=== PATIENT | female | born 1950 | race Caucasian/White ===

== ENCOUNTER → 2017-07-12 | Outpatient (CLI) | payer OTHER ==
--- NOTE | 2017-07-12 12:24 | NM ---
EXAMINATION TYPE: NM stress cardiolite complete DATE OF EXAM: 07/12/2017 COMPARISON: NONE HISTORY: 66-year-old female with chest pain and shortness of breath TECHNIQUE: After the intravenous administration of 10.0 mCi Tc 99m Sestamibi - Rest images obtained 45 minutes post injection. The patient exercised using a LAMONT protocol and 1 minute prior to peak exercise was injected with 24.5 mCi Tc 99m Sestamibi - Stress images obtained 25 minutes post injecti on. FINDINGS: Targeted heart rate was achieved during performance of the study; patient reached 93% maximal heart r ate with exercise time of 3 minutes 33 seconds. The technologist reports that the patient was experie ncing PVCs and chest pain. Review of stress and rest SPECT images demonstrates no distinct perfusion abnormality. Attenuation a rtifacts are prominent on the rest images. Gated analysis shows normal wall motion with an estimated left ventricular ejection fraction of 65 %. TID is calculated at 0.77, within normal limits. IMPRESSION: No scintigraphic evidence for reversible ischemia
--- NOTE | 2017-07-13 06:57 | ECHOF ---
Referral Reason:R07.9 chest pain R06.00 dyspnea MEASUREMENTS -------- HEIGHT: 167.6 cm WEIGHT: 90.7 kg BP: IVSd: 1.4 cm (0.6 - 1.1) LVIDd: 3.6 cm (3.9 - 5.3) LVPWd: 1.4 cm (0.6 - 1.1) IVSs: 1.8 cm LVIDs: 2.1 cm LVPWs: 1.8 cm Ao Diam: 3.2 cm (2.0 - 3.7) AV Cusp: 1.8 cm (1.5 - 2.6) LA Diam: 3.4 cm (2.7 - 3.8) MV EXCURSION: 15.271 mm (> 18.000) MV EF SLOPE: 29 mm/s (70 - 150) EPSS: 0.3 cm MV E Honorio: 0.65 m/s MV DecT: 183 ms MV A Honorio: 0.54 m/s MV E/A Ratio: 1.20 RAP: 5.00 mmHg RVSP: 14.41 mmHg FINDINGS -------- Sinus rhythm. This was a technically good study. There is moderate concentric left ventricular hypertrophy. Overall left ventricular systolic function is normal with, an EF between 55 - 60 %. The right ventricle is normal in size and function. The left atrium is normal in size. The right atrium is normal in size. The aortic valve is trileaflet, and appears structurally normal. No aortic stenosis or regurgitation. The mitral valve leaflets are mildly thickened. There is trace mitral regurgitation. Trace tricuspid regurgitation present. The right ventricular systolic pressure, as measured by Doppler, is 14.41mmHg. Pulmonic valve appears structurally normal. The aortic root size is normal. The pericardium is normal. CONCLUSIONS -------- 1. Sinus rhythm. 2. There is trace mitral regurgitation. 3. Trace tricuspid regurgitation present. 4. The right ventricular systolic pressure, as measured by Doppler, is 14.41mmHg. 5. Pulmonic valve appears structurally normal. 6. The aortic root size is normal. 7. The pericardium is normal. 8. This was a technically good study. 9. There is moderate concentric left ventricular hypertrophy. 10. Overall left ventricular systolic function is normal with, an EF between 55 - 60 %. 11. The right ventricle is normal in size and function. 12. The left atrium is normal in size. 13. The right atrium is normal in size. 14. The aortic valve is trileaflet, and appears structurally normal. No aortic stenosis or regurgitation. 15. The mitral valve leaflets are mildly thickened. LAST CHALKER: Nathaly Gonzalez RDCS
--- NOTE | 2017-07-13 07:23 | EST ---
EXERCISE STRESS DATE OF SERVICE: 07/12/2017 AGE: 66 SEX: Female. HT: 66" WT: 200 pounds PROTOCOL: Cardiolite STAGE: II DURATION OF EXERCISE: 3:35 HEART RATE REST: 77 BLOOD PRESSURE REST: 136/68 MAXIMUM HEART RATE ACHIEVED: 146 MAXIMUM BLOOD PRESSURE: 203/67 85% MPHR: 133 100% MPHR: 156 METS: 5.2 INDICATIONS: Chest pain. CLINICAL INFORMATION: Baseline EKG revealed normal sinus rhythm without significant ST-T changes. Patient walked on a standard Indra protocol for a total duration of 3 minutes and 35 seconds, achieved a maximal heart rate of 146 beats per minute which is more than 85% of predicted maximal. There was a lot of artifact on the EKG tracings; however, there is no evidence of any clear-cut stress-induced ischemia on this study. The patient did not have any angina. Her exercise capacity was quite limited. By EKG criteria, this is a negative stress test with limited exercise capacity and only 3-1/2 minutes of exercise. MMODL / IJN: [id number] /
== END | disposition home or self-care (01) ==
LOC: RADNMMAIN 08:51
PROVIDERS: ATTEND Family Medicine
DX: I51.7 Cardiomegaly (principal); R07.9 Chest pain, unspecified; R53.83 Other fatigue; I10 Essential (primary) hypertension; Z72.0 Tobacco use
CPT/HCPCS: 93017; 93306; 78452; A9500

== ENCOUNTER → 2017-07-27 | Outpatient (CLI) | payer OTHER ==
--- NOTE | 2017-07-27 12:32 | CT ---
EXAMINATION TYPE: CT chest w con DATE OF EXAM: 07/27/2017 COMPARISON: NONE HISTORY: SOB, bilateral lower limb edema CT DLP: 437.2 mGycm. Automated Exposure Control for Dose Reduction was Utilized. TECHNIQUE: CT scan of the thorax is performed following with IV Contrast, patient injected with 100 mL of Omnipaque 300. FINDINGS: LUNGS: The lungs are grossly clear, there is no concerning parenchymal mass or nodule identified. T here is no pleural effusion or pneumothorax seen. The tracheobronchial tree is patent. Nodular area of pleural parenchymal scarring is seen at the left lung base. Minimal subsegmental bibasilar depende nt atelectasis is noted. Calcified right lower lobe granuloma is seen medially inferior to the gastro esophageal recess. MEDIASTINUM: There are no greater than 1 cm hilar or mediastinal lymph nodes. No pericardial effusi on is seen. OTHER: Minimal degenerative changes of the thoracic spine are noted. Phrygian cap is incidentally not ed of the gallbladder. IMPRESSION: 1. No evidence of pulmonary edema to suggest decompensated congestive heart failure in this patient w ith bilateral lower extremity edema. No pulmonary arterial enlargement or ascending thoracic aortic a neurysm. 2. Mild splenomegaly, incidentally noted.
== END | disposition home or self-care (01) ==
LOC: RADCTMAIN 11:49
PROVIDERS: ATTEND Family Medicine
DX: R07.9 Chest pain, unspecified (principal); R06.00 Dyspnea, unspecified; Z72.0 Tobacco use
CPT/HCPCS: 71260; Q9967

== ENCOUNTER 2019-05-18 09:57 | Day surgery (SDC) | payer MEDICARE, OTHER ==
[2019-05-16 15:56] VITALS: BMI 32.3
[~2019-05-18 09:57] MED LIST: LACTATED RINGERS 1,000 ML IV SCH; LIDOCAINE 1% 20 ML VIAL (10MG/ML) FOR IV START INTRADERMA PRN
[2019-05-18 10:14] VITALS: RESP 16; TEMP 98.3
[2019-05-18] MEDS ORDERED: LIDOCAINE 1% 20 ML VIAL (10MG/ML) FOR IV START INTRADERMA ONE (10:22)
[2019-05-18] MEDS ORDERED: LACTATED RINGERS 1,000 ML IV ONE (10:22)
[2019-05-18] MEDS ORDERED: PROPOFOL 10 MG/ML 20 ML VIAL IV ONE (10:54)
[2019-05-18] MEDS ORDERED: LIDOCAINE 1% INJ 10MG/ML (20 ML MDV) ONE (10:54)
--- NOTE | 2019-05-18 11:15 | P.PCN ---
Date of Procedure: 05/18/19 Procedure(s) Performed: BRIEF HISTORY: Patient is a 68-year-old pleasant white female, scheduled for an elective colonoscopy as a part of screening for colorectal neoplasia. PROCEDURE PERFORMED: Colonoscopy. PREOPERATIVE DIAGNOSIS: Screening for colon cancer. IV sedation per Anesthesia. PROCEDURE: After informed consent was obtained, the patient, was brought into the endoscopy unit. IV sedation was administered by Anesthesia under continuous monitoring. Digital rectal examination was normal. Initially the Olympus CF-160 flexible video colonoscope was then inserted in the rectum, gradually advanced into the cecum without any difficulty. Careful examination was performed as the scope was gradually being withdrawn. Ileocecal valve and the appendiceal orifice were visualized and appeared normal. Prep was excellent. Mucosa of the cecum, ascending colon, transverse colon, descending colon, sigmoid colon, and rectum appeared normal. Retroflexion was performed in the rectum and no lesions were seen. The patient tolerated the procedure well. IMPRESSION: Normal-appearing colon from rectum to cecum with no evidence of colorectal neoplasia. RECOMMENDATIONS: Findings of this examination were discussed with the patient as well as a family. She was advised to have a repeat screening colonoscopy in 10 years.
[2019-05-18 11:35] VITALS: BP 168/77; PULSE 73
== END 2019-05-18 11:48 | disposition home or self-care (01) ==
LOC: ORWHC2ENDO 09:57
PROVIDERS: ATTEND Internal Medicine Gastroenterology
DX: Z12.11 Encounter for screening for malignant neoplasm of colon (principal); I10 Essential (primary) hypertension; F17.210 Nicotine dependence, cigarettes, uncomplicated; Z79.82 Long term (current) use of aspirin; Z79.899 Other long term (current) drug therapy; Z79.890 Hormone replacement therapy; Z96.649 Presence of unspecified artificial hip joint
CPT/HCPCS: J2001; J2704; G0121

== ENCOUNTER → 2020-05-27 | Outpatient (CLI) | payer MEDICARE, OTHER ==
--- NOTE | 2020-05-28 10:28 | ECHOF ---
Referral Reason:I10 hypertension, R07.9 chest pain MEASUREMENTS -------- HEIGHT: 165.1 cm WEIGHT: 88.0 kg BP: RVIDd: 3.1 cm (< 3.3) IVSd: 1.2 cm (0.6 - 1.1) LVIDd: 3.8 cm (3.9 - 5.3) LVPWd: 1.3 cm (0.6 - 1.1) IVSs: 1.3 cm LVIDs: 3.2 cm LVPWs: 1.6 cm LA Diam: 4.1 cm (2.7 - 3.8) LAESV Index (A-L): 29.42 ml/m Ao Diam: 2.8 cm (2.0 - 3.7) AV Cusp: 1.7 cm (1.5 - 2.6) MV EXCURSION: 13.536 mm (> 18.000) MV EF SLOPE: 74 mm/s (70 - 150) EPSS: 0.9 cm MV E Honorio: 0.65 m/s MV DecT: 188 ms MV A Honorio: 0.61 m/s MV E/A Ratio: 1.05 RAP: 5.00 mmHg RVSP: 30.88 mmHg FINDINGS -------- Sinus rhythm. This was a technically good study. The left ventricular size is normal. There is mild concentric left ventricular hypertrophy. Overa ll left ventricular systolic function is normal with, an EF between 55 - 60 %. The right ventricle is normal in size. The left atrium is mildly dilated. LA is midly dilated 29-33ml/m2. The right atrial size is normal. Interatrial and interventricular septum intact. The aortic valve is trileaflet, and appears structurally normal. No aortic stenosis or regurgitation. Mild mitral regurgitation is present. Mild tricuspid regurgitation present. Right ventricular systolic pressure is normal at < 35 mmHg. There is no pulmonic regurgitation present. The aortic root size is normal. There is no pericardial effusion. CONCLUSIONS -------- 1. Sinus rhythm. 2. This was a technically good study. 3. The left ventricular size is normal. 4. There is mild concentric left ventricular hypertrophy. 5. Overall left ventricular systolic function is normal with, an EF between 55 - 60 %. 6. The right ventricle is normal in size. 7. The left atrium is mildly dilated. 8. LA is midly dilated 29-33ml/m2. 9. The right atrial size is normal. 10. Mild mitral regurgitation is present. 11. Mild tricuspid regurgitation present. 12. Right ventricular systolic pressure is normal at < 35 mmHg. PATIENT SCHEDULING MANAGER: Nathaly Gonzalez RDCS
== END | disposition home or self-care (01) ==
LOC: RADECHMAIN 12:11
PROVIDERS: ATTEND Family Medicine
DX: I08.1 Rheumatic disorders of both mitral and tricuspid valves (principal)
CPT/HCPCS: 93306

== ENCOUNTER → 2020-07-20 | Outpatient (CLI) | payer MEDICARE ==
--- NOTE | 2020-07-20 10:05 | CTL ---
EXAMINATION TYPE: CT Low Dose Lung DATE OF EXAM ORDERED: 07/20/2020 HISTORY: Personal history tobacco use. Lung cancer screening CT DLP: 122.[address] CTDI: 3.9 mGy Automated exposure control for dose reduction was used. SCREENING VISIT: 1 COMPARISON: Chest CT 07/27/2017 TECHNIQUE: Low dose computed tomography scan was performed through the chest at 1 mm thick sections a nd reconstructed images in the coronal plane at [address] DIAGNOSTIC QUALITY: Satisfactory FINDINGS: LUNG NODULES: No suspicious nodules LUNGS: COPD: Severity: None Fibrosis: Severity: None Lymph nodes: None Other findings: Right lung base medially there is a calcified nodule abutting the mediastinum, axial image #62 measures 9 mm. Subpleural soft tissue focus on axial image 62 measures 3 mm, likely postinf lammatory. Scarring is present at the posterior left lung base, stable RIGHT PLEURAL SPACE: Effusion: None Calcification: None Thickening: None Pneumothorax: None LEFT PLEURAL SPACE: Effusion: None Calcification: None Thickening: None Pneumothorax: None HEART: Heart Size: Normal Coronary calcification: Minimal Pericardial effusion: None OTHER FINDINGS: Upper abdomen: The spleen is enlarged at 14 cm Bony thorax: Thoracic spondylosis, degenerative disc changes are present Supraclavicular region: Normal Other: IMPRESSION: Benign FOLLOW UP CT CHEST RECOMMENDATION: [address] LUNG RAD: 2
== END | disposition home or self-care (01) ==
LOC: RADCTMAIN 07:25
PROVIDERS: ATTEND Family Medicine
DX: Z12.2 Encounter for screening for malignant neoplasm of respiratory organs (principal); F17.210 Nicotine dependence, cigarettes, uncomplicated

== ENCOUNTER → 2020-09-15 | Outpatient (CLI) | payer MEDICARE ==
--- NOTE | 2020-09-17 10:10 | MR ---
EXAMINATION TYPE: MR liver wo/w con DATE OF EXAM: 09/15/2020 COMPARISON: None HISTORY: Liver Cirrhosis CONTRAST: Standard multiplanar, multisequence MRI departmental protocol utilizing 9 mL intravenous Gadavist jayme olinium contrast. FINDINGS: Liver demonstrates a coarsened signal pattern without evidence of discrete mass. Hepatic veins and po rtal veins appear to enhance normally. The heart is enlarged. Spleen measures 14 cm compatible with mild splenomegaly. Correlate for hepatoc ellular disease and cirrhosis. Hypertrophic change of the facets and degenerative change of the spine noted. There are multiple gallstones. Pancreas demonstrates a normal appearance. No hydronephrosis. Adrenal glands of normal morphology. Aorta of normal caliber. Bowel gas pattern nonspecific. No free fluid. N o pathologic adenopathy. Tiny areas of abnormal signal involving both kidneys too small to characteri ze but likely related to tiny cyst cysts measuring less than 5 mm IMPRESSION: 1. Findings are suggestive of diffuse hepatocellular disease such as hepatic cirrhosis with mild sple nomegaly but no evidence of mass. 2. Cholelithiasis.
== END | disposition home or self-care (01) ==
LOC: RADMRIMAIN 12:05
PROVIDERS: ATTEND Internal Medicine Hematology & Oncology
DX: K80.20 Calculus of gallbladder without cholecystitis without obstruction (principal); K74.60 Unspecified cirrhosis of liver
CPT/HCPCS: 74183; A9585

== ENCOUNTER → 2020-11-27 | Day surgery (SDC) | payer MEDICARE ==
[2020-11-25 11:59] VITALS: BMI 33.3
[~2020-11-27] MED LIST changes: +LACTATED RINGERS 1,000 ML IV ONE; -LACTATED RINGERS 1,000 ML IV SCH; -LIDOCAINE 1% 20 ML VIAL (10MG/ML) FOR IV START INTRADERMA PRN; +LIDOCAINE 1% INJ 10MG/ML (20 ML MDV) ONE; +PROPOFOL 10 MG/ML 20 ML VIAL IV ONE
[2020-11-27 10:48] VITALS: TEMP 98.2
--- NOTE | 2020-11-27 11:15 | P.PCN ---
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 PROCEDURE PERFORMED: Esophagogastroduodenoscopy. PREOPERATIVE DIAGNOSIS: Cirrhosis of the liver/screening for esophageal varices. IV sedation per anesthesia. PROCEDURE: After informed consent was obtained, the patient was brought into the endoscopy unit. IV sedation was administered by Anesthesia under continuous monitoring. Initially the Olympus GIF-140 video endoscope was inserted into the mouth. Esophagus intubated without any difficulty. It was gradually advanced into the stomach and duodenum and carefully examined. The bulb and the second part of the duodenum appeared normal. The scope at this time was withdrawn to the stomach, adequately insufflated with air, and upon careful examination, mucosa of the antrum, appeared normal. Mucosa of the body, cardia and the fundus had changes consistent with mild portal hypertensive gastropathy. The scope was then withdrawn into the esophagus. The GE junction was located at 39 cm from the incisors. Small esophageal varices noted with no evidence of any red signs.. The rest of the esophagus appeared normal. There were no erosions or ulcerations seen and the patient tolerated the procedure well. IMPRESSION: 1. Small esophageal varices with no red signs seen. 2. Mild portal hypertensive gastropathy. 3. No evidence of gastric varices. RECOMMENDATIONS: The findings of this examination were discussed with the patient as well as a family. She'll be scheduled for repeat upper endoscopy in 2 years to evaluate for change in esophageal varices.
[2020-11-27 11:18] VITALS: RESP 17
[2020-11-27 11:37] VITALS: BP 154/73; PULSE 79
== END ==
LOC: ORWHC2ENDO 10:18
PROVIDERS: ATTEND Internal Medicine Gastroenterology
DX: K74.60 Unspecified cirrhosis of liver (principal); I85.10 Secondary esophageal varices without bleeding; K76.6 Portal hypertension; K31.89 Other diseases of stomach and duodenum; I10 Essential (primary) hypertension; E07.9 Disorder of thyroid, unspecified; F17.210 Nicotine dependence, cigarettes, uncomplicated; Z79.890 Hormone replacement therapy; Z79.899 Other long term (current) drug therapy; Z97.2 Presence of dental prosthetic device (complete) (partial); Z96.641 Presence of right artificial hip joint; Z90.49 Acquired absence of other specified parts of digestive tract; Z90.89 Acquired absence of other organs; Z98.890 Other specified postprocedural states
CPT/HCPCS: 43235; J2001; J2704

== ENCOUNTER → 2021-09-06 | Outpatient (CLI) | payer MEDICARE ==
--- NOTE | 2021-09-06 09:54 | US ---
EXAMINATION TYPE: US abdomen limited DATE OF EXAM: 09/06/2021 COMPARISON: NONE CLINICAL HISTORY: B18.2 Chronic Hep C, K74.60 Unspecified cirrhosis. No Pain, Cholelithiasis EXAM MEASUREMENTS: Liver Length: 14.7 cm Gallbladder Wall: 0.3 cm CBD: 0.5 cm Right Kidney: 10.1 x 5.1 x 4.0 cm Pancreas: Obscured by bowel gas Liver: Increased attenuation, decreased visualization of vessels suggestive of fatty infiltrate Gallbladder: Multiple Gallbladder stones seen Evidence for sonographic Minor's sign: No CBD: wnl Right Kidney: No hydronephrosis or masses seen Multiple Gallbladder stones, gallbladder has multiple folds 1) 0.9 x 0.9 x1.2cm 2) 1.7 x 1.7 x 1.3cm 3) 1.8 x1.6 x1.4cm 4) 1.4 x1.5 x 1.2cm IMPRESSION: 1. Multiple gallstones. 2. Nonspecific pattern of liver can be seen with hepatic steatosis or hepatocellular disease includin g hepatitis correlate clinically.
== END | disposition home or self-care (01) ==
LOC: RADUSWWP 09:05
PROVIDERS: ATTEND Internal Medicine
DX: K80.20 Calculus of gallbladder without cholecystitis without obstruction (principal); B18.2 Chronic viral hepatitis C
CPT/HCPCS: 76705

== ENCOUNTER → 2022-03-10 | Outpatient (CLI) | payer MEDICARE ==
[2022-03-10 13:28] LABS: Basophils % (A) 1 %; Eosinophils # (A) 0.1 k/uL (0-0.7); Eosinophils % (A) 3 %; HCT 37.4 % (34.0-46.0); HGB 11.8 gm/dL (11.4-16.0); Lymphocytes # (A) 1.4 k/uL (1.0-4.8); Lymphocytes % (A) 46 %; MCH 32.3 pg (25.0-35.0); MCHC 31.6 g/dL (31.0-37.0); MCV 102.2 fL (80.0-100.0); Macrocytosis Slight; Mean Platelet Volume 9.7; Monocytes # (A) 0.3 k/uL (0-1.0); Monocytes % (A) 11 %; Neutrophils # (A) 1.2 k/uL (1.3-7.7); Neutrophils % (A) 38 %; RBC 3.65 m/uL (3.80-5.40); RDW 14.7 % (11.5-15.5); WBC 3.2 k/uL (3.8-10.6)
[2022-03-10 15:09] LABS: Platelet Count 54 k/uL (150-450)
[2022-03-10 18:02] LABS: % Iron Saturation 43.63 (12.00-45.00)
== END | disposition home or self-care (01) ==
LOC: LABWHC1 11:47
PROVIDERS: ATTEND Physician Assistant
DX: D61.9 Aplastic anemia, unspecified (principal)
CPT/HCPCS: 36415; 82728; 83540; 83550; 85025

== ENCOUNTER 2023-02-03 11:19 | Day surgery (SDC) | payer MEDICARE, OTHER ==
[~2023-02-03 11:19] MED LIST changes: -LACTATED RINGERS 1,000 ML IV ONE; +LACTATED RINGERS 1,000 ML IV SCH; -LIDOCAINE 1% INJ 10MG/ML (20 ML MDV) ONE; -PROPOFOL 10 MG/ML 20 ML VIAL IV ONE
[2023-02-03] MEDS ORDERED: LACTATED RINGERS 1,000 ML IV ONE (11:43)
[2023-02-03 11:54] VITALS: RESP 16; TEMP 98.2
[2023-02-03] MEDS ORDERED: PROPOFOL 10 MG/ML 20 ML VIAL IV ONE (12:33)
--- NOTE | 2023-02-03 12:40 | P.PCN ---
Date of Procedure: 02/03/23 Procedure(s) Performed: BRIEF HISTORY: Patient is a 72-year-old, pleasant, 16 female with history of cirrhosis of the liver and prior history of chronic hepatitis C infection is scheduled for an upper endoscopy as a part of screening for esophageal varices.. PROCEDURE PERFORMED: Esophagogastroduodenoscopy. PREOPERATIVE DIAGNOSIS: Cirrhosis of the liver/screening for esophageal varices. IV sedation per anesthesia. PROCEDURE: After informed consent was obtained, the patient was brought into the endoscopy unit. IV sedation was administered by Anesthesia under continuous monitoring. Initially the Olympus GIF-140 video endoscope was inserted into the mouth. Esophagus intubated without any difficulty. It was gradually advanced into the stomach and duodenum and carefully examined. The bulb and the second part of the duodenum appeared normal. The scope at this time was withdrawn to the stomach, adequately insufflated with air, and upon careful examination, mucosa of the antrum, body, cardia and the fundus had changes consistent with mild portal hypertensive gastropathy. No evidence of gastric varices. The scope was then withdrawn into the esophagus. The GE junction was located at 39 cm from the incisors. Small distal esophageal varices seen. The rest of the esophagus appeared normal. There were no erosions or ulcerations seen and the patient tolerated the procedure well. IMPRESSION: 1. Small distal esophageal varices. 2. Mild portal hypertensive gastropathy 3. No evidence of gastric varices. RECOMMENDATIONS: The findings of this examination were discussed with the patient as well as her family.. She was advised to have a repeat upper endoscopy in 2-3 years. In the meantime she can be started on nonselective beta mayco with propranolol 10 mg 3 times daily for primary prevention of esophageal variceal bleeding.
[2023-02-03 13:23] VITALS: BP 123/67; PULSE 78
== END 2023-02-03 13:42 | disposition home or self-care (01) ==
LOC: ORWHC2ENDO 11:19
PROVIDERS: ATTEND Internal Medicine Gastroenterology
DX: I85.00 Esophageal varices without bleeding (principal); K76.6 Portal hypertension; K31.89 Other diseases of stomach and duodenum; I10 Essential (primary) hypertension; E07.9 Disorder of thyroid, unspecified; K74.60 Unspecified cirrhosis of liver; K91.0 Vomiting following gastrointestinal surgery; Z79.890 Hormone replacement therapy; Z79.899 Other long term (current) drug therapy
CPT/HCPCS: 43235; J2704

== ENCOUNTER → 2023-06-29 | Outpatient (CLI) | payer MEDICARE, OTHER ==
--- NOTE | 2023-07-02 23:42 | MM ---
Reason for Exam: Screening (asymptomatic). Last mammogram was performed 4 year(s) and 2 month(s) ago. Patient History: Menarche at age 15. First Full-Term at age 19. Postmenopausal. Estrogen for 1 month. Risk Values: Anyi 5 year model risk: 1.2%. NCI Lifetime model risk: 3.7%. Prior Study Comparison: 02/27/2008 Bilateral Screening Mammogram, [facility]. 07/01/2010 Bilateral Screening Mammogram, [facility]. 04/24/2019 Bilateral Diagnostic Mammogram, [facility]. Tissue Density: The breast tissue is almost entirely fat. Findings: Analyzed By CAD. Benign oil cyst calcifications bilaterally. Chronic nodularity on the left. There is no suspicious group of microcalcifications or new suspicious mass in either breast. Overall Assessment: Benign, BI-RAD 2 Management: Screening Mammogram of both breasts in 1 year. . Patient should continue monthly self-breast exams. A clinical breast exam by your physician is recommended on an annual basis. This exam should not preclude additional follow-up of suspicious palpable abnormalities. Note on Anyi scores and lifetime risk: 1. A Anyi score greater than 3% is considered moderate risk. If this is the case, consider specialist referral to assess eligibility for a risk reducing agent. 2. If overall lifetime risk for the development of breast cancer is 20% or higher, the patient may qualify for future screening with alternating mammogram and breast MRI. Electronically signed and approved by: Wyatt Ernandez M.D. Radiologist
== END | disposition home or self-care (01) ==
LOC: RADMAMWWP 09:47
PROVIDERS: ATTEND Family Medicine
DX: Z12.31 Encounter for screening mammogram for malignant neoplasm of breast (principal); Z78.0 Asymptomatic menopausal state
CPT/HCPCS: 77063; 77067

== ENCOUNTER → 2024-04-18 | Outpatient (CLI) | payer MEDICARE, OTHER ==
--- NOTE | 2024-04-18 11:14 | XR ---
EXAMINATION TYPE: XR lumbosacral spine min 4V DATE OF EXAM: 04/18/2024 COMPARISON: None HISTORY: Pain TECHNIQUE: 5 view lumbar spine FINDINGS: There are 5 lumbar-type vertebral bodies. Vertebral body heights are preserved. Pedicles ar e intact. Side bending towards the left is evident. Degenerative disc changes are present through the lumbar spine. Some vacuum disc phenomenon and narro wing of disc height noted at L4-5. Loss of disc space to the L5-S1 level. Facet degenerative changes are present within the lower lumbar spine. IMPRESSION: 1. Mild degenerative disc changes greatest at L4-5. 2. Facet degenerative changes.
== END | disposition home or self-care (01) ==
LOC: RADXRMAIN 10:03
PROVIDERS: ATTEND Internal Medicine Hematology & Oncology
DX: M47.816 Spondylosis without myelopathy or radiculopathy, lumbar region (principal); M47.817 Spondylosis without myelopathy or radiculopathy, lumbosacral region; D69.59 Other secondary thrombocytopenia; B18.2 Chronic viral hepatitis C; I10 Essential (primary) hypertension; Z71.3 Dietary counseling and surveillance
CPT/HCPCS: 72110

== ENCOUNTER → 2024-04-22 | Outpatient (CLI) | payer MEDICARE, OTHER ==
--- NOTE | 2024-04-25 09:09 | MR ---
EXAMINATION TYPE: MR liver wo/w con DATE OF EXAM: 04/22/2024 10:24 PM CLINICAL INDICATION:Female, 73 years old with history of K74.60; PHH, Cirrhosis, Hx Hepatitis C COMPARISON: MRI 09/15/2020 TECHNIQUE: Multiplanar multi-sequence imaging was performed without contrast. Post contrast imaging was performed. Post IV contrast subtraction images were also submitted for review. IV Contrast: 9.5 cc Gadavist FINDINGS: LOWER CHEST: No gross irregularity. ABDOMEN Liver: Nodular contour to liver compatible with cirrhosis. No evidence for steatosis. There is an art erial phase enhancing 8 mm focus in the right hepatic lobe segment 4A series 1001 image 431 which is not definitely seen on delayed imaging. Finding given its peripheral location could represent shunt p henomenon. Gallbladder and Bile ducts: No evidence for ductal dilation, or biliary stricture or evidence of chol edocholithiasis. The gallbladder contains multiple gallstones. Pancreas: No ductal dilation. No evidence for solid mass. Spleen: measuring up to 11.7 cm. Adrenal glands: Unremarkable. Kidneys: No evidence for obstructive uropathy. No suspicious renal masses. High T2 low T1 subcentimet er bilateral cysts. Stomach and Bowel: No evidence for bowel wall thickening or evidence for obstruction. Retroperitoneum/Peritoneum: No evidence of pneumoperitoneum or free fluid. Vasculature: No aortic aneurysm. Musculoskeletal: The osseous structures appear intact. Lymph Nodes: No gross evidence for lymphadenopathy. Abdominal wall: Unremarkable. IMPRESSION: 1. Hepatic cirrhosis with arterially enhancing 8 mm focus within the right hepatic lobe without wash out suggesting shunt phenomenon. No observation endometrial HCC criteria. Continued surveillance yann mmended. 2. Cholelithiasis. 3. Bilateral simple appearing renal cysts.
== END | disposition home or self-care (01) ==
LOC: RADMRIMAIN 21:30
PROVIDERS: ATTEND Internal Medicine Hematology & Oncology
DX: K74.60 Unspecified cirrhosis of liver (principal); K80.20 Calculus of gallbladder without cholecystitis without obstruction; N28.1 Cyst of kidney, acquired; B19.20 Unspecified viral hepatitis C without hepatic coma
CPT/HCPCS: 74183; A9585

== ENCOUNTER 2025-04-08 08:40 | Day surgery (SDC) | payer MEDICARE, OTHER ==
[2025-04-07 12:29] VITALS: BMI 36.6
[2025-04-08] MEDS: IV FLUID CONTINUATION 1,000 ML IV ONE (09:00)
[2025-04-08 09:05] VITALS: TEMP 97.6
[2025-04-08] MEDS ORDERED: PROPOFOL 10 MG/ML 20 ML VIAL IV ONE (10:07)
[2025-04-08] MEDS ORDERED: LIDOCAINE 2% (PF) 20 MG/ML 5 ML VIAL ONE (10:07)
--- NOTE | 2025-04-08 10:17 | P.PCN ---
Date of Procedure: 04/08/25 Procedure(s) Performed: BRIEF HISTORY: Patient is a 74-year-old, pleasant, white female with history of liver cirrhosis scheduled for an upper endoscopy to screen for esophageal varices. PROCEDURE PERFORMED: Esophagogastroduodenoscopy. PREOPERATIVE DIAGNOSIS: History of liver cirrhosis/screening for esophageal varices. IV sedation per anesthesia. PROCEDURE: After informed consent was obtained, the patient was brought into the endoscopy unit. IV sedation was administered by Anesthesia under continuous monitoring. Initially the Olympus GIF-140 video endoscope was inserted into the mouth. Esophagus intubated without any difficulty. It was gradually advanced into the stomach and duodenum and carefully examined. The bulb and the second part of the duodenum appeared normal. The scope at this time was withdrawn to the stomach, adequately insufflated with air, and upon careful examination, mucosa of the antrum, appeared normal. Mucosa body, cardia and the fundus had congested appearing mucosa consistent with mild hypertensive gastropathy. No gastric varices identified.. The scope was then withdrawn into the esophagus. The GE junction was located at 39 cm from the incisors. There was small distal esophageal varices identified. The esophagus appeared normal. There were no erosions or ulcerations seen and the patient tolerated the procedure well. IMPRESSION: 1. Small distal esophageal varices with no red tommy santa. 2. Mild portal hypertensive gastropathy. RECOMMENDATIONS: The findings of this examination were discussed with the patient as well as her family. She was advised to have repeat upper endoscopy in 2 to 3 years..
[2025-04-08 10:24] VITALS: RESP 16
[2025-04-08 10:42] VITALS: BP 137/78; PULSE 78
== END 2025-04-08 11:06 | disposition home or self-care (01) ==
LOC: ORWHC2ENDO 08:40
PROVIDERS: ATTEND Internal Medicine Gastroenterology
DX: I85.10 Secondary esophageal varices without bleeding (principal); K76.6 Portal hypertension; K74.60 Unspecified cirrhosis of liver
CPT/HCPCS: 43235; J2704; J2003